=== PATIENT | female | born 1940 ===

== ENCOUNTER → 2017-10-02 | Outpatient (REF) | payer BC ==
[2017-10-02 18:21] LABS: ALBUMIN 3.3 GM/DL (3.2-5.2); ALBUMIN/GLOBULIN RATIO 0.79 (1.00-1.93); ALKALINE PHOSPHATASE 170 U/L (45-117); ALT/SGPT 20 U/L (12-78); ANION GAP 10 MEQ/L (8-16); AST/SGOT 15 U/L (7-37); BILIRUBIN,TOTAL 0.3 MG/DL (0.2-1.0); BLOOD UREA NITROGEN 22 MG/DL (7-18); CALCIUM LEVEL 8.7 MG/DL (8.8-10.2); CARBON DIOXIDE LEVEL 25 MEQ/L (21-32); CHLORIDE LEVEL 106 MEQ/L (98-107); CREATININE FOR GFR 0.88 MG/DL (0.55-1.30); GLOMERULAR FILTRATION RATE > 60.0 (>39); GLUCOSE, FASTING 100 MG/DL (70-100); LDH LACTATE DEHYDROGENASE 505 U/L (84-246); SODIUM LEVEL 141 MEQ/L (136-145); TOTAL PROTEIN 7.5 GM/DL (6.4-8.2)
[2017-10-02 18:22] LABS: POTASSIUM SERUM 5.3 MEQ/L (3.5-5.1)
[2017-10-02 18:25] LABS: HEMATOCRIT 24.3 % (36.0-47.0); MEAN CORPUSCULAR HGB CONC 32.9 g/dl (32.0-36.5); PLATELET COUNT, AUTOMATED 185 10^3/uL (150-450); RED BLOOD COUNT 2.76 10^6/uL (4.00-5.40); RED CELL DISTRIBUTION WIDTH 13.8 % (11.5-14.5); WHITE BLOOD COUNT 3.1 10^3/uL (4.0-10.0)
[2017-10-02 18:29] LABS: ADD MANUAL DIFFER YES; DIFF SLIDE NUMBER 337; POSITIVE DIFF POS FLAG; POSITIVE MORPH POS FLAG
[2017-10-02 19:53] LABS: ATYPICAL LYMPH 4 % (0-5); BANDS 2 % (< 11); LYMPHOCYTES 80 % (16-52); MONOCYTES 3 % (0-8); NEUTROPHILS 11 % (35-75)
[2017-10-02 19:54] LABS: PLATELET ESTIMATE NORMAL (NORMAL)
[2017-10-02 19:55] LABS: ANISOCYTOSIS 1+; POIKILOCYTOSIS 1+; POLYCHROMASIA 1+
== END ==
LOC: M LABDRAWC 17:07
DX: D64.9 Anemia, unspecified (principal); D75.81 Myelofibrosis
CPT/HCPCS: 83615